=== PATIENT | male | born 1970 | race Caucasian/White ===

== ENCOUNTER 2022-10-10 11:59 | Emergency (ER) | payer MEDICAID ==
[~2022-10-10] VITALS: Ht 175.3 cm; Wt 90.9 kg
[2022-10-10 12:06] VITALS: BP 115/88
[2022-10-10] MEDS ORDERED: LIDOCAINE 2%/EPI 1:100,000 inj. Multi-dose 20 ML VIAL IJ ONE (13:35)
[2022-10-10 14:52] LABS: BASOPHILS # (AUTO) 0.1 X10'3 (0-0.2); BASOPHILS % (AUTO) 0.4 % (0-1); EOSINOPHILS # (AUTO) 0.1 X10'3 (0-0.9); EOSINOPHILS % (AUTO) 0.6 % (0-6); HEMATOCRIT 43.6 % (42.0-52.0); HEMOGLOBIN 14.6 g/dl (14.0-17.9); LYMPHOCYTES # (AUTO) 1.1 X10'3 (1.1-4.8); LYMPHOCYTES % (AUTO) 7.9 % (21-51); MEAN CORPUSCULAR HEMOGLOBIN 31.1 PG (27.0-31.0); MEAN CORPUSCULAR HGB CONC 33.6 g/dL (33.0-36.5); MEAN CORPUSCULAR VOLUME 92.7 FL (78-98); MEAN PLATELET VOLUME 7.7 FL (7.4-10.4); MONOCYTES # (AUTO) 1.2 X10'3 (0-0.9); NEUTROPHILS % (AUTO) 82.1 % (42-75); PLATELET COUNT 239 X10'3 (140-440); RED BLOOD COUNT 4.71 X10'6 (4.70-6.10); RED CELL DISTRIBUTION WIDTH 12.6 % (11.5-14.5); WHITE BLOOD COUNT 13.3 X10'3 (4.5-11.0)
[2022-10-10 15:01] LABS: GLUCOSE,SYNOVIAL FLUID 83 MG/DL; TOTAL PROTEIN,SYNOVIAL FLUID 4.4 GM/DL
[2022-10-10 15:08] LABS: CRYSTAL ID, SYN FLD URIC ACID; SYNOVIAL FLUID CRYSTALS QT FEW
[2022-10-10 15:24] LABS: APPEARANCE,SYNOVIAL FLUID CLOUDY; COLOR,SYNOVIAL FLUID YELLOW; LYMPHOCYTES,SYNOVIAL FLUID 15 % (0-75); NEUTROPHILS,SYNOVIAL FLUID 85 % (0-25); SYN RBC 100 /CU MM (0); SYN WBC 9400 /CU MM (0-200)
[2022-10-10] MEDS ORDERED: HYDR-3973 PO (15:45)
[2022-10-10 16:10] LABS: ALANINE AMINOTRANSFERASE 57 U/L (12-78); ALBUMIN 2.8 G/DL (3.4-5.0); ALBUMIN/GLOBULIN RATIO 0.6 (1.1-1.5); ALKALINE PHOSPHATASE 81 IU/L (46-116); ANION GAP 8 (8-16); ASPARTATE AMINO TRANSFERASE 41 U/L (10-37); BLOOD UREA NITROGEN 19 MG/DL (7-18); BUN/CREATININE RATIO 17.4 (10.0-20.0); CALCIUM 8.8 MG/DL (8.5-10.1); CHLORIDE 104 MMOL/L (99-107); CREATININE 1.09 MG/DL (0.60-1.10); GLUCOSE 89 MG/DL (70-104); POTASSIUM 3.7 MMOL/L (3.5-5.1); SODIUM 139 MMOL/L (135-145); TOTAL CARBON DIOXIDE 27.5 MMOL/L (24-32); TOTAL PROTEIN 7.3 G/DL (6.4-8.2); eGFR 71 ML/MIN
== END 2022-10-10 15:36 | disposition home or self-care (01) ==
LOC: ER 12:01
DX: M10.9 Gout, unspecified (principal); M25.461 Effusion, right knee; Z72.89 Other problems related to lifestyle; Z88.0 Allergy status to penicillin; Z79.899 Other long term (current) drug therapy
CPT/HCPCS: 20610; 36415; 73564; 80053; 82945; 84157; 85025; 85651; 87070; 89051; 89060; 93971; 99285; A6449

== ENCOUNTER 2022-10-13 15:25 | Emergency (ER) | payer MEDICAID ==
[~2022-10-13] VITALS: Ht 175.3 cm; Wt 90.2 kg
[~2022-10-13 15:25] MED LIST: HYDR-3973 PO
[2022-10-13 15:33] VITALS: BP 143/100
[2022-10-13] MEDS ORDERED: METH4TAB3 PO (15:40)
[2022-10-13] MEDS ORDERED: INDO-12 PO (15:40)
== END 2022-10-13 15:47 | disposition home or self-care (01) ==
LOC: ER 15:26
DX: M10.061 Idiopathic gout, right knee (principal); Z88.0 Allergy status to penicillin
CPT/HCPCS: 99283